=== PATIENT | male | born 1965 | race Caucasian/White ===

== ENCOUNTER 2022-09-16 12:32 | Inpatient (IN) | payer MEDICARE, MEDICAID, SELFPAY ==
[2022-09-16] VITALS (8 sets, daily range): BP systolic 123–165; BP diastolic 74–90; PULSE 71–80; RESP 16–26; TEMP 36.6–36.9; O2SAT 85–93; BMI 41.0
--- NOTE | 2022-09-16 13:33 | EDS_ITS ---
HPI History of Present Illness Chief Complaint: Shortness of Breath Detail of Chief Complaint: Shortness of breath Informant: patient Narrative Narrative: Patient presents to the emergency department with complaint of shortness of breath. He was seen at his primary care physician's office today to get put back on oxygen and was referred to the ER. Patient used to be on oxygen but somehow he got taken off by Medicare and its unclear if they stopped paying for it. Patient states he was taken off accidentally because he just needed certain times. Patient also states that a year ago he had his BiPAP machine recalled and is on a wait list to get a new one. In the office today his O2 sat was 85% on room air and with ambulation it dropped down to 75%. Patient had an EKG in the office that showed abnormal T wave changes and was referred to the emergency department. Patient denies any chest pain. He denies fever or cough. He denies recent travel or surgery. Patient does have history of COPD as well as CHF and history of bipolar disorder. [facility] Medical History (Updated 09/16/22 @ 15:[address] Eugenie Rodrigues, ) Bipolar disorder Congestive heart failure (CHF) COPD (chronic obstructive pulmonary disease) Home Medications albuterol sulfate 90 mcg/actuation aerosol inhaler (Ventolin HFA) 2 puff inhalation Q6H PRN sob 09/16/22 [History Last Taken Unknown] aripiprazole 2 mg tablet (Abilify) 2 mg PO DAILY 09/16/22 [History Last Taken Unknown] atorvastatin 40 mg tablet 40 mg PO DAILY 09/16/22 [History Last Taken Unknown] buspirone 7.5 mg tablet 3.75 mg PO TID 09/16/22 [History Last Taken Unknown] empagliflozin 25 mg tablet (Jardiance) 25 mg PO DAILY 09/16/22 [History Last Taken Unknown] fluoxetine 20 mg capsule (Prozac) 20 mg PO DAILY 09/16/22 [History Last Taken Unknown] fluticasone fur. 100 mcg-umeclid 62.5 mcg-vilant 25 mcg inhalat.powder (Trelegy Ellipta) 1 inh inhalation DAILY 09/16/22 [History Last Taken Unknown] furosemide 40 mg tablet (Lasix) 40 mg PO DAILY 09/16/22 [History Last Taken Unknown] lithium carbonate 300 mg tablet 300 mg PO TID 09/16/22 [History Last Taken Un known] metformin 1,000 mg tablet 1,000 mg PO BID 09/16/22 [History Last Taken Unknown] omeprazole 40 mg capsule,delayed release 40 mg PO DAILY 09/16/22 [History Last Taken Unknown] Allergy/AdvReac Type Severity Reaction Status Date / Time amoxicillin [From Augmentin] Allergy PT UNSURE Verified 09/16/22 12:36 OF REACTION clavulanic acid Allergy PT UNSURE Verified 09/16/22 12:36 [From Augmentin] OF REACTION Social History Smoking Status: Former smoker ROS ROS ED Review of Systems ROS Unobtainable: other Constitutional Constitutional ED: Reports lethargy; Denies chills, fever(s), sweats or weight loss Eyes Eyes: Denies blurry vision, change in vision or diplopia ENT ENT ED: Denies rhinorrhea or sore throat Cardiovascular Cardiovascular: Denies chest pain, orthopnea or racing heartbeat Respiratory/Chest Respiratory/Chest: Reports dyspnea and dyspnea on exertion; Denies cough, orthopnea or sputum Gastrointestinal Gastrointestinal: Denies abdominal pain, diarrhea, nausea or vomiting Genitourinary Genitourinary ED: Denies dysuria, hematuria or urinary frequency Musculoskeletal Musculoskeletal: Denies arthralgias, back pain, myalgias or neck pain Integumentary Denies abscess, Abrasions or rash Neurologic Neurologic: Denies headache(s) or weakness Psychiatric Psychiatric: Denies anxiety, depression or suicidal thoughts Endocrine Endocrinology: Denies polydipsia, polyphagia or polyuria Hematologic/Lymphatic Hematologic/Lymphatic: Denies easy bleeding, easy bruising or lymphadenopathy Allergic/Immunologic Allergic/Immunologic ED: Denies mouth swelling, tongue swelling or urticaria EXAM Physical Exam Narrative Exam Narrative: Morbidly obese Const Vital Signs: 09/16/22 12:34 09/16/22 12:52 09/16/22 13:07 Temperature 98.1 F Temperature Source Temporal Pulse Rate 78 Respiratory Rate 18 Respiratory Effort Normal Non-Labored Respiratory Depth Normal Respiratory Pattern Normal Blood Pressure 165/81 H Blood Pressure Mean 109 Pulse Ox 91 93 Oxygen Delivery Method Room Air Room Air Nasal Cannula Oxygen Flow Rate (L/min) 4 Positive well nourished and well developed General Appearance ED: well developed and NAD HEENT Reports TM's clear and moist mucous membranes normocephalic and atraumatic; Negative for trauma or tenderness Tympanic Membrane ED: Yes TM's clear Eyes PERRL and EOMs intact bilaterally General Eye ED: Negative for pale conjunctiva or scleral icterus Neck no lymphadenopathy, supple and no JVD General: Negative for tenderness Chest Wall inspection of chest normal and palpation of chest normal Chest: Negative for tenderness Resp normal respiratory effort and clear to auscultation bilaterally Effort and Inspection: Negative for respiratory distress or pain with movement Auscultation: Negative for rhonchi, wheezes or diminished lung sounds Cardio regular rate, regular rhythm, S1 normal heart sound, S2 normal heart sound and no murmurs Peripheral Pulses: pulses 2+ throughout GI normal to inspection, nondistended, normoactive bowel sounds, soft to palpation, non-tender, non-distended and no masses Back/Spine no CVA tenderness and no thoracic nor lumbar tenderness Extremity normal to inspection Extremity Narrative: +1 edema both lower extremities General Extremety ED: Negative for edema General Extremity: Negative for edema Neuro oriented x3, CN's II-XII intact bilaterally, no sensory deficits noted and gait normal Sensorium / Orientation: awake, alert, oriented to person, oriented to place and oriented to time Motor Exam: strength 5/5 throughout and strength abnormal Psych mental status grossly normal Skin no rashes or lesions noted and no wounds MDM MDM MDM Narrative Medical decision making narrative: Patient presents from primary care physician's office with hypoxemia. In the differential would be CHF versus pneumothorax versus infectious process. Patient also with abnormal EKG which could represent acute coronary syndrome with CHF. IV line established on arrival. Patient placed on a night monitor. EKG obtained showed a sinus rhythm with rate [address] changes anteriorly when compared with prior EKG appear more pronounced than on prior EKG. Chest x-ray I felt was unremarkable however radiology felt there might be evidence of pulmonary congestion/edema or early developing pneumonia. Clinically I do not think patient has pneumonia. BMP is currently pending. Troponin was normal. White blood cell count was normal at 7.4 and hemoglobin was 15. D-dimer was less than 0.27. On 4 L nasal cannula O2 patient still saturating around 90%. Case will be discussed with hospitalist to evaluate patient for admission. Lab Data Labs: Laboratory Results - last 24 hr 09/16/22 09/16/22 09/16/22 14:12 14:12 14:12 WBC 7.4 RBC 5.65 Hgb 15.0 Hct 50.7 MCV 89.7 MCH 26.5 L MCHC 29.6 L RDW Std Deviation 47.6 H RDW Coeff of Fany 14.6 Plt Count 204 MPV 10.7 Immature Gran % (Auto) 0.300 Neut % (Auto) 74.3 H Lymph % (Auto) 12.0 L [place] % (Auto) 11.8 H Eos % (Auto) 1.2 Baso % (Auto) 0.4 Absolute Neuts (auto) 5.5 Absolute Lymphs (auto) 0.89 Nucleated RBC % 0 D-Dimer Quant (PE/DVT) < 0.27 L Sodium 141 Potassium 4.3 Chloride 104 Carbon Dioxide 33.0 H Anion Gap 4 L BUN 17 Creatinine 0.89 Estim Creat Clear Calc 102.24 Est GFR (MDRD) Af Amer 112 Est GFR (MDRD) Non-Af 93 BUN/Creatinine Ratio 19.0 Glucose 112 H Calcium 9.0 Troponin I High Sens 28 B-Natriuretic Peptide 09/16/22 14:12 WBC RBC Hgb Hct MCV MCH MCHC RDW Std Deviation RDW Coeff of Fany Plt Count MPV Immature Gran % (Auto) Neut % (Auto) Lymph % (Auto) [place] % (Auto) Eos % (Auto) Baso % (Auto) Absolute Neuts (auto) Absolute Lymphs (auto) Nucleated RBC % D-Dimer Quant (PE/DVT) Sodium Potassium Chloride Carbon Dioxide Anion Gap BUN Creatinine Estim Creat Clear Calc Est GFR (MDRD) Af Amer Est GFR (MDRD) Non-Af BUN/Creatinine Ratio Glucose Calcium Troponin I High Sens B-Natriuretic Peptide 20.2 Radiography Chest X-Ray - ED: 1 View Diagnostic Testing: Clinical Impression(s) from Imaging Studies Chest X-Ray 09/16/22 14:00 IMPRESSION: Findings compatible with interstitial edema or early/developing pneumonia. Follow-up chest imaging to resolution recommended. Electronically Signed: Tushar Andres, at 14:15 EDT , 1 view chest x-ray obtained interpreted by myself as no evidence of infiltrate or pneumothorax or acute disease process. Radiology felt there might be finding s compatible with interstitial edema or early developing pneumonia. EKG Initial EKG: Attestation: I personally reviewed and interpreted this EKG as follows: Comments: Sinus rhythm with nonspecific ST changes anteriorly Prior EKG tracings: available for review Prior: Changed Discharge Plan Triage Chief Complaint: Shortness of Breath ED Provider: Eugenie Rodrigues Dx/Rx/DC Orders Clinical Impression: Acute dyspnea, Hypoxemia, Abnormal ECG Prescriptions: No Action furosemide [Lasix] 40 mg Tablet 40 mg PO DAILY atorvastatin 40 mg Tablet 40 mg PO DAILY omeprazole [Prilosec] 40 mg Capsule,Delayed Release(Dr/Ec) 40 mg PO DAILY metformin 1,000 mg Tablet 1,000 mg PO BID buspirone 7.5 mg Tablet 3.75 mg PO TID albuterol sulfate [Ventolin HFA] 90 mcg/actuation Hfa Aerosol Inhaler 2 puff INHALATION Q6H PRN (Reason: sob) lithium carbonate 300 mg Tablet 300 mg PO TID fluoxetine [Prozac] 20 mg Capsule 20 mg PO DAILY aripiprazole [Abilify] 2 mg Tablet 2 mg PO DAILY Jardiance 25 mg Tablet 25 mg PO DAILY Trelegy Ellipta 100-62.5-25 mcg Blister With Device 1 inh INHALATION DAILY Primary Care Provider: Tio Landry Referrals: Tio Landry DO [Primary Care Provider] - Disposition Disposition: Acute Care Hospital [facility]
--- NOTE | 2022-09-16 14:00 | RAD_ITS ---
STUDY: X-RAY CHEST REASON FOR EXAM: Male, 57 years old. Dyspnea. TECHNIQUE: Single frontal view of the chest. COMPARISON: None. FINDINGS: Cardiomegaly with aortic tortuosity. Low volume inspiration with patchy opacities in both lower lobes, right slightly greater than left. Findings most compatible with interstitial edema/congestive failure or early/developing pneumonia. Follow-up chest imaging to resolution recommended.. RAD/Chest 1 View (Portable) IMPRESSION: Findings compatible with interstitial edema or early/developing pneumonia. Follow-up chest imaging to resolution recommended. Electronically Signed: Tushar Andres, at 14:15 EDT ,
[2022-09-16 14:28] LABS: Absolute Lymphocyte Count 0.89 X10^3/uL (0.83-4.51); Absolute Neutrophil Count 5.5 X10^3/uL (2.0-7.7); Basophil# 0.03 X10^3/uL; Basophil% 0.4 % (0-1); Eosinophil# 0.09 X10^3/uL; Eosinophils% 1.2 % (0-5); Hematocrit 50.7 % (40-54); Lymphocyte # 0.89 X10^3/ul (0.83-4.51); Mean Corp Hgb Conc 29.6 g/dL (32-36); Mean Corpuscular Hgb 26.5 pg (27.0-32.0); Mean Corpuscular Volume 89.7 fL (80-94); Mean Platelet Vol. 10.7 fl (6.2-12.0); Monocyte# 0.88 X10^3/uL; Monocyte% 11.8 % (0-10); NRBC Flagged by Analyzer 0 % (0-5); Neutrophil # 5.53 X10^3/uL (2.7-7.7); Neutrophil % 74.3 % (47-70); Platelet Count 204 K/mm3 (150-450); RBC Distribution Width CV 14.6 % (11.6-14.6); RBC Distribution Width SD 47.6 fl (35.1-43.9); Red Blood Count 5.65 M/mm3 (4.6-6.2); White Blood Count 7.4 K/mm3 (4.4-11.0)
[2022-09-16 14:39] LABS: D-Dimer Quantitative (DVT/PE) < 0.27 FEU/ug/m (0.27-0.49)
[2022-09-16 14:50] LABS: Anion Gap 4 (5-15); BUN 17 mg/dL (7-18); Chloride 104 mmol/L (98-107); Creatinine, Serum 0.89 mg/dL (0.70-1.30); EST Glomerular Filtration Rate 93 mL/min (>60); Est Glom Filt Rate - Afr Amer 112 mL/min (>60); Estimated Creatinine Clearance 102.24 ml/min; Glucose 112 mg/dL (74-106); Potassium 4.3 mmol/L (3.5-5.1); Sodium Level 141 mmol/L (136-145); Troponin-I HS 28 pg/mL (3.0-78.0)
[2022-09-16 15:09] LABS: BNP,B-Type NATRIURETIC PEPTIDE 20.2 pg/mL (0-100)
--- NOTE | 2022-09-16 15:34 | HP.PCM_ITS ---
HPI - General General Date of Admission: 09/16/22 Date of Service: 09/16/22 Chief Complaint: Dyspnea, Hypoxia, EKG changes. HPI Narrative The patient is a 57 y/o M w/ PMHx: Morbid obesity, COPD, Chronic CHF, Bipolar disorder/Anxiety and Depression, GERD, Diabetes mellitus type II who presents to the [facility] ED on 09/16/22 with history of worsening dyspnea, worse with any exertion previously on chronic supplemental oxygen (4L [place]); however, he was taken off by Medicare for unclear reasons and has been off for nearly 1 year with no reported hypoxia per him at his follow-up PCP visits and also reportedly had a BiPAP machine in the past for sleep apnea however this has been recalled and he is awaiting for new 1 with PCP evaluation on day of presentation with oxygenation noted in the office 85% on room air and with ambulation decreased to 75% as well as an EKG in the office demonstrating T wave abnormalities different from his prior prompting referral to the ED for evaluation. He denies any recent fever, chills, cough or URI type symptoms. He reports chronic orthopnea unchanged but does believe he is probably gained weight although unclear timeline and states that the edema to his legs is chronic and unchanged. Work-up in the ED included T98.1, heart rate 78, BP 165/81, respiratory rate 18, initially 91% on room air however desaturated now 93% on 4 L nasal cannula, CBC with WC 7.4, hemoglobin 15, platelet 204 without marked shift, D-dimer less than 0.27, BMP with complex at 33, glucose 112 otherwise not marked appearing, troponin 28, BNP 20.2, chest x-ray with findings compatible with interstitial edema and/or early possibly developing pneumonia with patchy opacities in both lower lobes, right slightly greater than left, EKG with sinus rhythm with nonspecific ST-T wave changes with no acute evidence of ischemia. [facility] Medical History (Updated 09/16/22 @ 20:[address] Emma Roth MD) Anxiety and depression Bipolar disorder Chronic respiratory failure with hypoxia Congestive heart failure (CHF) COPD (chronic obstructive pulmonary disease) HLD (hyperlipidemia) HTN (hypertension) Morbid obesity BALA treated with BiPAP Home Medications albuterol sulfate 90 mcg/actuation aerosol inhaler (Ventolin HFA) 2 puff inhalation Q6H PRN sob 09/16/22 [History Last Taken 2 Days Ago ~09/14/22] aripiprazole 5 mg tablet 5 mg PO DAILY . 09/16/22 [History Last Taken 09/16/22] atorvastatin 40 mg tablet 40 mg PO DAILY 09/16/22 [History Last Taken 09/15/22] buspirone 7.5 mg tablet 3.75 mg PO TID 09/16/22 [History Last Taken 09/16/22] empagliflozin 25 mg tablet (Jardiance) 25 mg PO DAILY 09/16/22 [History Last Taken 09/16/22] fluoxetine 20 mg capsule (Prozac) 20 mg PO DAILY 09/16/22 [History Last Taken 09/16/22] fluticasone fur. 100 mcg-umeclid 62.5 mcg-vilant 25 mcg inhalat.powder (Trelegy Ellipta) 1 inh inhalation DAILY 09/16/22 [History Last Taken 09/16/22] furosemide 40 mg tablet (Lasix) 40 mg PO DAILY 09/16/22 [History Last Taken 09/15/22] lithium carbonate 300 mg tablet 300 mg PO TID 09/16/22 [History Last Taken 09/16/22] metformin 1,000 mg tablet 1,000 mg PO BID 09/16/22 [History Last Taken 09/16/22] omeprazole 40 mg capsule,delayed release 40 mg PO DAILY 09/16/22 [History Last Taken 09/16/22] Allergy/AdvReac Type Severity Reaction Status Date / Time amoxicillin [From Augmentin] Allergy PT UNSURE Verified 09/16/22 12:36 OF REACTION clavulanic acid Allergy PT UNSURE Verified 09/16/22 12:36 [From Augmentin] OF REACTION Family History (Updated 09/16/22 @ 20:[address] Emma Roth MD) Mother Hypertension Father Hypertension Heart disease Prostate cancer Surgical History (Updated 09/16/22 @ 20:[address] Emma Roth MD) History of tonsillectomy and adenoidectomy Social History (Updated 09/16/22 @ 20:[address] Emma Roth MD) household members: none Smoking Status: Former smoker how long ago did patient quit smoking: Quit 2016, smoked 1.5 ppd since teen until quit. alcohol intake: never substance use type: does not use ROS ROS Narrative Admission Review of Systems: CONSTITUTIONAL: No weight loss, fever, chills, + weakness or fatigue. HEENT: Eyes: No visual loss, blurred vision, double vision or yellow sclerae. Ears, Nose, Throat: No hearing loss, sneezing, congestion, runny nose or sore throat. SKIN: No rash or itching, lesions, wounds. CARDIOVASCULAR: No chest pain, chest pressure or chest discomfort, palpitations, edema, orthopnea, syncopal events. RESPIRATORY: + shortness of breath worse with exertion, occasional wheezing. No marked cough or sputum, hemoptysis. GASTROINTESTINAL: No anorexia, nausea, vomiting or diarrhea, abdominal pain, melena, BRBPR. GENITOURINARY: No dysuria, frequency, urgency or retention. NEUROLOGICAL: No headache, dizziness, syncope, paralysis, ataxia, numbness or tingling in the extremities, focal weakness, change in bowel or bladder control, seizure. MUSCULOSKELETAL: + muscle, back pain, joint pain or stiffness. HEMATOLOGIC: No anemia, bleeding or bruising. LYMPHATICS: No enlarged nodes. No history of splenectomy. PSYCHIATRIC: + history of depression or anxiety. ENDOCRINOLOGIC: No reports of sweating, cold or heat intolerance. No polyuria or polydipsia. ALLERGIES: No history of asthma, hives, eczema or rhinitis. Vital Signs Vital Signs Vital Signs: 09/16/22 12:34 09/16/22 12:52 09/16/22 13:07 Temperature 98.1 F Temperature Source Temporal Pulse Rate 78 Respiratory Rate 18 Respiratory Effort Normal Non-Labored Respiratory Depth Normal Respiratory Pattern Normal Blood Pressure 165/81 H Blood Pressure Mean 109 Pulse Ox 91 93 Oxygen Delivery Method Room Air Room Air Nasal Cannula Oxygen Flow Rate (L/min) 4 Weight Weight: 311 lb 1.156 oz Body Mass Index (BMI) 41.0 Physical Exam Narrative Physical Examination: General: Awake, alert, oriented x 3 and cooperative, seated upright in the ED bed, fatigued otherwise no acute distress. Skin: Normal color, normal turgor, no icterus, no cyanosis except for venous stasis skin changes to bilateral lower extremity. HEENT: AT/NC, EOMI, PERRLA, MMM, no carotid bruits, thickened neck makes JVD evaluation difficult Lungs: Diminished, greater bases, occasional end expiratory wheeze, no respiratory distress, no rales or rhonchi. Heart: Currently regular rate and rhythm; no gallop, rub audible. Abdomen: Soft, morbidly obese, NTTP, difficult to assess distention and HSM given morbidly obese habitus, distant normal bowel sounds Extremities: No cyanosis, no clubbing, chronic bilateral lower extremity likely lymphedema with chronic venous stasis skin changes noted Neurological: Patient awake, alert, oriented as noted, cognitive function intact; pupils equally reactive to light and accommodation, cranial nerves II- XII grossly normal, moving all 4 extremities, no focal deficits, strength moderately to severely global decrease secondary to acute presentation with notable hypoxia Psychiatric: Affect appears fatigued, no acute evidence of depressive or anxiety feelings. Results Lab / Micro Data Result Diagrams: 09/16/22 14:12 09/16/22 14:12 Labs: Laboratory Results - last 24 hr 09/16/22 14:12: WBC 7.4, RBC 5.65, Hgb 15.0, Hct 50.7, MCV 89.7, MCH 26.5 L, MCHC 29.6 L, RDW Std Deviation 47.6 H, RDW Coeff of Fany 14.6, Plt Count 204, MPV 10.7, Immature Gran % (Auto) 0.300, Neut % (Auto) 74.3 H, Lymph % (Auto) 12.0 L, [place] % (Auto) 11.8 H, Eos % (Auto) 1.2, Baso % (Auto) 0.4, Absolute Neuts (auto) 5.5, Absolute Lymphs (auto) 0.89, Nucleated RBC % 0 09/16/22 14:12: D-Dimer Quant (PE/DVT) < 0.27 L 09/16/22 14:12: Sodium 141, Potassium 4.3, Chloride 104, Carbon Dioxide 33.0 H, Anion Gap 4 L, BUN 17, Creatinine 0.89, Estim Creat Clear Calc 102.24, Est GFR (MDRD) Af Amer 112, Est GFR (MDRD) Non-Af 93, BUN/Creatinine Ratio 19.0, Glucose 112 H, Calcium 9.0, Troponin I High Sens 28 09/16/22 14:12: B-Natriuretic Peptide 20.2 Radiology Impression Chest X-Ray 09/16/22 14:00 IMPRESSION: Findings compatible with interstitial edema or early/developing pneumonia. Follow-up chest imaging to resolution recommended. Electronically Signed: Tushar Andres, at 14:15 EDT , Assessment & Plan Assessment/Plan (1) Hypoxemia: PLAN: Plan The patient is a 57 y/o M w/ PMHx: Morbid obesity, COPD, Chronic CHF, Bipolar disorder/Anxiety and Depression, GERD, Diabetes mellitus type II who presents to the [facility] ED on 09/16/22 with history of worsening dyspnea, worse with any exertion previously on chronic supplemental oxygen however he was taken off by Medicare for unclear reasons and also reportedly had a BiPAP machine in the past for sleep apnea however this has been recalled and he is awaiting for new 1 with PCP evaluation on day of presentation with oxygenation noted in the office 85% on room air and with ambulation decreased to 75% as well as an EKG in the office demonstrating T wave abnormalities different from his prior prompting referral to the ED for evaluation. #1. Acute hypoxia suspected likely on chronic as previously had been on chronic supplemental oxygen (4L [place]) with Possible Acute on Chronic CHF, Unclear type (lower suspicion) versus Possible PNA (lower suspicion) with concurrently reported new EKG changes w/ flipped T waves anteriorly more pronounced than prior versus Unfortunately Untreated Chronic Hypoxic Respiratory Failure: Will admit to PCU given unclear etiology CXR findings and EKG changes, maintain on oxygen with wean as tolerated to home oxygen supplementation, will cycle cardiac enzymes, repeat EKGs, continue ATC duonebs, PRN albuterol, initiate IV lasix pulse dose until clear etiology given findings on CXR although BNP not marked, will initiate also Rocephin and Azithromycin to be cautious w/ de-escalation off if infectious work-up unremarkable, HOB, IS parameters w/ pending sputum cultures, full respiratory viral panel, COVID PCR and urine antigens, will also obtain ECHO, will plan repeat CXR in AM following pulse dose lasix administration to evaluate for infiltrates, procalcitonin requested also. CM consulted to assist with oxygen issues and BIPAP machine. Certainly pending work-up as noted could obtain CT chest. Will need outpatient Pulmonary assessment/PFTs, re-establishment with Cardiology if appropriate. #2. Diabetes mellitus type II: Hold oral home regimen, ADA diet, accu checks w/ ISS. #3. Hypertension: We will hold home oral Lasix and transition to IV Lasix pending further evaluation for possible CHF versus early pneumonia, not on any beta-kyle nor INDERJIT inhibitor/ARB if no, PRN hydralazine. #4. Hyperlipidemia: We will continue patient on statin therapy, FLP in a.m. #5. Anxiety depression/bipolar disorder: We will continue patient home aripiprazole, buspirone, Prozac, lithium with level check requested. #6. Morbid Obesity: Weight loss and lifestyle changes encouraged. #7. GERD: We will continue patient home PPI. #8. BALA: BIPAP q HS. #9. DVT Prophylaxis: Lovenox. #10. CODE status: Patient does not have HCPOA or living will in place but he notes if he was unable to make medical decisions he would like his Mother to make these decisions. Discussed CODE status at length including difference between FULL code, DNR-CCA and DNR-CC status. Following discussions about the differences in these status, requested DNR-CCA, no intubation status. Advanced Care Planning Face to Face Time: 16 minutes. Admission Evaluation Time spent evaluating chart, patient history, patient evaluation, care planning and discussion with specialists: 75 minutes. Charges/Coding Visit Charges Inpatient E&M: 61724 Init Hosp L3 Procedures Hospitalists Procedures: 51318 Advncd Care Plan 30 Min
--- NOTE | 2022-09-16 17:13 | ECHOD_ITS ---
Reason For Study: CHF Procedure This was a 2D Doppler, Color Flow transthoracic echocardiogram. Exam performed portable in patient room. Left Ventricle Normal LV size. Mild concentric left ventricular hypertrophy. The left ventricular ejection fraction is 65 %. Normal diastology for age. Right Ventricle Mildly dilated right ventricle. Mild global right ventricular systolic dysfunction. Atria The left atrium is severely enlarged. Normal right atrium. Mitral Valve Trivial mitral valve insufficiency. Tricuspid Valve Trivial tricuspid valve insufficiency. Normal pulmonary artery pressure. Aortic Valve Trisinus/trileaflet aortic valve. Trivial aortic valve insufficiency. Pulmonic Valve Mild (1+) pulmonic valve insufficiency. Great Vessels Normal sized aortic root. MMode/2D Measurements & Calculations LVIDd: 5.5 cm IVSd: 1.2 cm Ao root diam: 3.4 cm LVIDs: 3.1 cm LVPWd: 1.2 cm RVDd: 4.4 cm FS: 43.2 % LAV(MOD-bp): 63.3 ml LVAd ap4: 32.3 cm2 SV(MOD-sp4): 66.7 ml LAV(MOD-bp) Indexed: 24.4 ml/m2 LVLd ap4: 8.8 cm LAV(MOD-sp2): 58.6 ml EDV(MOD-sp4): 98.7 ml LAV(MOD-sp4): 50.2 ml EDV(sp4-el): 101.3 ml LVAs ap4: 15.7 cm2 LVLs ap4: 6.6 cm ESV(MOD-sp4): 32.0 ml ESV(sp4-el): 31.7 ml EF(MOD-sp4): 67.6 % EF(sp4-el): 68.8 % SV(sp4-el): 69.7 ml LA dimension(2D): 5.0 cm LA A4 area: 22.0 cm2 RA A4 area: 18.3 cm2 Time Measurements MV dec time: 0.21 sec Doppler Measurements & Calculations MV E max simno: 106.3 cm/sec Lat Peak E' Simon: 14.3 cm/sec Med Peak E' Simon: 6.4 cm/sec MV A max simon: 85.7 cm/sec E/E' lat: 7.4 E/E' med: 16.6 MV E/A: 1.2 Ao V2 max: 154.9 cm/sec LV V1 max: 130.7 cm/sec MV dec slope: 501.2 cm/sec2 Ao max P.6 mmHg LV V1 max P.8 mmHg Ao V2 mean: 110.1 cm/sec Ao mean P.4 mmHg Ao V2 VTI: 33.5 cm PA V2 max: 111.0 cm/sec TR max simon: 276.0 cm/sec TR max P.5 mmHg ECHO/Echo Complete Interpretation Summary Mild concentric left ventricular hypertrophy. The left ventricular ejection fraction is 65 %. Mildly dilated right ventricle. Mild global right ventricular systolic dysfunction. The left atrium is severely enlarged. Mild (1+) pulmonic valve insufficiency. Ordering Physician: Emma Roth Referring Physician: Tio Landry Performed By: Kiely Ang, MICHAEL, RVT
[2022-09-16 18:16] LABS: Magnesium 2.5 mg/dL (1.6-2.6); Troponin-I HS 22 pg/mL (3.0-78.0)
[2022-09-16] MEDS: Furosemide 40 MG/4 ML Vial IV (18:22)
[2022-09-16] MEDS: 0.9% Saline Lock 10 ML Syringe IV (18:22)
[2022-09-16] MEDS: Ceftriaxone 1 GM/50 ML BAG IV (18:22)
[2022-09-16 19:13] LABS: Procalcitonin < 0.01 ng/mL (0.00-0.09)
[2022-09-16] MEDS: Ipratropium/Albuterol Sulfate 3 ML AMPUL.NEB INHALATION (20:44)
[2022-09-16 21:31] LABS: Troponin-I HS 24 pg/mL (3.0-78.0)
[2022-09-16] MEDS: Atorvastatin Calcium 40 MG Tablet PO (21:44)
[2022-09-16] MEDS: Enoxaparin 40 MG/0.4 ML Syringe SC (21:44)
[2022-09-16] MEDS: Lithium Carbonate 300mg Capsule 300 MG PO (21:44)
[2022-09-16] MEDS: busPIRone 15 MG TABLET 3.75 MG PO (21:44)
--- NOTE | 2022-09-16 22:15 | NURSING ---
pt gradually put on 10L from 5L d/t desats in low 80s%,, respiratory made aware that pt has an order for Bipap.
[2022-09-17] VITALS (12 sets, daily range): BP systolic 128–148; BP diastolic 72–89; PULSE 74–83; RESP 12–22; TEMP 36.6–36.9; O2SAT 90–97; BMI 41.0
[2022-09-17 01:40] LABS: Bedside Glucose 114 mg/dL (74-106)
[2022-09-17] MEDS: busPIRone 15 MG TABLET 3.75 MG PO ×3 (05:34→23:10)
[2022-09-17] MEDS: Lithium Carbonate 300mg Capsule 300 MG PO ×3 (05:34→23:12)
--- NOTE | 2022-09-17 05:51 | RAD_ITS ---
INDICATION: Dyspnea, ? PNA/CHF EXAMINATION/TECHNIQUE: X-RAY - XR Chest 2 Views COMPARISON: None. FINDINGS: LINES/DEVICES: None. LUNGS: Linear stranding/atelectasis in the right lung base. Mild elevation of the right hemidiaphragm. No focal infiltrate is seen. MEDIASTINUM AND CARDIOVASCULAR STRUCTURES: Cardiac silhouette not enlarged. Central airways and mediastinal contour are unremarkable. BONES AND SOFT TISSUES: No demonstrated acute osseous changes. RAD/Chest PA and Lateral IMPRESSION: 1. New right basilar segmental atelectasis. 2. Otherwise no significant change. Electronically Signed: Ambrosio Dash MD at 15:23 EDT ,
[2022-09-17 07:00] LABS: Bedside Glucose 135 mg/dL (74-106)
[2022-09-17] MEDS: Ipratropium/Albuterol Sulfate 3 ML AMPUL.NEB INHALATION ×2 (07:13→19:26)
[2022-09-17 07:44] LABS: Absolute Lymphocyte Count 0.69 X10^3/uL (0.83-4.51); Absolute Neutrophil Count 7.4 X10^3/uL (2.0-7.7); Basophil# 0.04 X10^3/uL; Basophil% 0.4 % (0-1); Eosinophil# 0.05 X10^3/uL; Eosinophils% 0.6 % (0-5); Hemoglobin 15.9 g/dL (13.0-16.5); Lymphocyte # 0.69 X10^3/ul (0.83-4.51); Lymphocyte % 7.6 % (19-41); Mean Corp Hgb Conc 28.5 g/dL (32-36); Mean Corpuscular Hgb 26.3 pg (27.0-32.0); Mean Corpuscular Volume 92.2 fL (80-94); Mean Platelet Vol. 10.8 fl (6.2-12.0); Monocyte# 0.88 X10^3/uL; Monocyte% 9.7 % (0-10); NRBC Flagged by Analyzer 0 % (0-5); Neutrophil # 7.38 X10^3/uL (2.7-7.7); Neutrophil % 81.1 % (47-70); Platelet Count 202 K/mm3 (150-450); RBC Distribution Width CV 14.6 % (11.6-14.6); RBC Distribution Width SD 49.1 fl (35.1-43.9); Red Blood Count 6.04 M/mm3 (4.6-6.2); White Blood Count 9.1 K/mm3 (4.4-11.0)
[2022-09-17 07:52] LABS: Hematocrit 55.7 % (40-54)
[2022-09-17 08:23] LABS: ALB/GLOB Ratio 1.1 RATIO (0.9-2.4); AST(SGOT) 13 U/L (15-37); Alanine Aminotransfer ALT/SGPT 23 U/L (16-61); Albumin, Serum 3.8 g/dL (3.2-5.0); Alkaline Phosphatase 83 U/L (45-117); Anion Gap 5 (5-15); BUN 18 mg/dL (7-18); BUN/Creat Ratio 21.8 RATIO (10-20); Chloride 102 mmol/L (98-107); Cholesterol 121 mg/dL (200); Creatinine, Serum 0.83 mg/dL (0.70-1.30); EST Glomerular Filtration Rate 102 mL/min (>60); Est Glom Filt Rate - Afr Amer 123 mL/min (>60); Estimated Creatinine Clearance 193.61 ml/min; Globulin 3.6 g/dL (2.2-4.2); Glucose 122 mg/dL (74-106); High Density Lipoprotein 50 mg/dL; Potassium 4.2 mmol/L (3.5-5.1); Protein, Total 7.4 g/dL (6.4-8.2); Sodium Level 140 mmol/L (136-145); Thyroid Stim Hormone (TSH) 0.34 uIU/mL (0.358-3.74); Triglycerides 135 mg/dL; Very Low Density Lipoprotein 27 mg/dL (5-40)
--- NOTE | 2022-09-17 08:54 | PN.HOSP_ITS ---
Reason for Visit Reason for Visit: Diagnoses Hypoxemia (09/16/22) Follow-up for hypoxia, evolving pneumonia and possible CHF exacerbation Objective Data Objective Data Vital Signs: Vital Signs Temp Pulse Resp BP Pulse Ox O2 Del Method O2 Flow Rate 98.0 F 78 21 H 138/72 H 94 Nasal Cannula 10 09/17/22 04:00 09/17/22 07:35 09/17/22 07:35 09/17/22 04:00 09/17/22 08:47 09/17/22 08:47 09/17/22 08:47 FiO2 40 09/17/22 04:33 Oxygen Flow Rate (L/min) 10 Oxygen Delivery Method Nasal Cannula Weight: 311 lb 1.156 oz Body Mass Index (BMI) 0.4 Intake & Output: Intake and Output for Last 24 Hours 09/15/22 09/16/22 09/17/22 23:59 23:59 23:59 Intake Total 305 / 305 Balance 305 / 305 Lab / Micro Data Result Diagrams: 09/17/22 06:49 09/17/22 06:49 Labs: Laboratory Results - last 24 hr 09/16/22 14:12: WBC 7.4, RBC 5.65, Hgb 15.0, Hct 50.7, MCV 89.7, MCH 26.5 L, MCHC 29.6 L, RDW Std Deviation 47.6 H, RDW Coeff of Fany 14.6, Plt Count 204, MPV 10.7, Immature Gran % (Auto) 0.300, Neut % (Auto) 74.3 H, Lymph % (Auto) 12.0 L, [place] % (Auto) 11.8 H, Eos % (Auto) 1.2, Baso % (Auto) 0.4, Absolute Neuts (auto) 5.5, Absolute Lymphs (auto) 0.89, Nucleated RBC % 0 09/16/22 14:12: D-Dimer Quant (PE/DVT) < 0.27 L 09/16/22 14:12: Sodium 141, Potassium 4.3, Chloride 104, Carbon Dioxide 33.0 H, Anion Gap 4 L, BUN 17, Creatinine 0.89, Estim Creat Clear Calc 102.24, Est GFR (MDRD) Af Amer 112, Est GFR (MDRD) Non-Af 93, BUN/Creatinine Ratio 19.0, Glucose 112 H, Calcium 9.0, Troponin I High Sens 28 09/16/22 14:12: B-Natriuretic Peptide 20.2 09/16/22 17:39: Magnesium 2.5, Troponin I High Sens 22 09/16/22 17:39: [place] 0.40 L 09/16/22 17:39: Procalcitonin < 0.01 09/16/22 20:35: COVID-19 (PATRIC) Not Detected 09/16/22 20:40: Troponin I High Sens 24 09/16/22 21:59: POC Glucose 114 H 09/17/22 06:42: POC Glucose 135 H 09/17/22 06:49: WBC 9.1, RBC 6.04, Hgb 15.9, Hct 55.7 H, MCV 92.2, MCH 26.3 L, MCHC 28.5 L, RDW Std Deviation 49.1 H, RDW Coeff of Fany 14.6, Plt Count 202, MPV 10.8, Immature Gran % (Auto) 0.600, Neut % (Auto) 81.1 H, Lymph % (Auto) 7.6 L, [place] % (Auto) 9.7, Eos % (Auto) 0.6, Baso % (Auto) 0.4, Absolute Neuts (auto) 7.4, Absolute Lymphs (auto) 0.69 L, Nucleated RBC % 0 09/17/22 06:49: Sodium 140, Potassium 4.2, Chloride 102, Carbon Dioxide 33.0 H, Anion Gap 5, BUN 18, Creatinine 0.83, Estim Creat Clear Calc 193.61, Est GFR (MDRD) Af Amer 123, Est GFR (MDRD) Non-Af 102, BUN/Creatinine Ratio 21.8 H, Glucose 122 H, Calcium 9.0, Total Bilirubin 0.50, AST 13 L, ALT 23, Alkaline Phosphatase 83, Total Protein 7.4, Albumin 3.8, Globulin 3.6, Albumin/Globulin Ratio 1.1, Triglycerides 135, Cholesterol 121, LDL Cholesterol 44, VLDL Cholesterol 27, HDL Cholesterol 50, TSH 0.34 L Radiography Diagnostic Testing: Radiology Impression Chest X-Ray 09/16/22 14:00 IMPRESSION: Findings compatible with interstitial edema or early/developing pneumonia. Follow-up chest imaging to resolution recommended. Electronically Signed: Tushar Andres, at 14:15 EDT , Physical Exam Narrative Seen and examined. Patient has history of smoking quit several years ago. Was smoking 1 pack/day since teenage. States he has a diagnosis of COPD. Patient gets easily short of breath trying to sit up from supine position or turning around in the bed. Physical exam General: Alert, Oriented x3, Cooperative, morbid obesity, weight 141 kg HEENT: Atraumatic, PERRLA, EOMI, Normocephalic Oral: Oral mucosa moist. No Gingival or Mucosal Lesions/ Ulcerations Neck: Supple, No JVD, Negative Carotid Bruits Lungs: Air entry diminished in bilateral lung bases. Bilateral, right more than left coarse crepitations. Dyspnea on minimal exertion. Mild tachypnea. 40 % FiO2, on 10 L of oxygen. Cardiovascular: Regular rate, Regular Rhythm, Normal S1, Normal S2, No murmurs Abdomen: Bowel Sounds Present, Soft, Non Tender, Non-Distended : No renal angle tenderness. No suprapubic tenderness. Extremities: No edema, Capillary Refill Less than 3 Seconds Skin: No rashes, No breakdown Musculoskeletal: No Tenderness to Palpation of Joints or Extremities, muscle strength 4+/5 at major joints Neurological: Cranial nerves II-XII grossly intact, DTR 2+/4 and Symmetrical, Neuro grossly intact Psych/Mental Status: Flat affect. Assessment & Plan Assessment/Plan (1) Hypoxemia: PLAN: Plan The patient is a 57 y/o M was sent by PCP for shortness of breath and hypoxia, 85% on room air and dropped to 75% on ambulation. Patient used to be on 4 L oxygen but was taken off by Medicare, reason unclear. As per ED physician, patient also had abnormal T waves in PCP office. #1. Acute on chronic hypoxia most probably, multifactorial CHF exacerbation, COPD exacerbation from a developing pneumonia with possible obstructive sleep apnea/OSH: Patient usually requires 4 L before home oxygen was taken off by Medicare. Patient also had BiPAP at home. chest x-ray individually reviewed from yesterday, 09/16 and today. Twelve-lead EKG shows normal sinus rhythm, RAD, RVH T inversion V1 to V3. No previous EKG to compare before admission. Chest x-ray shows interstitial edema and bilateral lower lobe opacities with bibasilar atelectasis. Possible evolving pneumonia. Patient on IV ceftriaxone and azithromycin. COVID-19 PCR negative. Urinary antigens and sputum culture respiratory panel pending. Echo is ordered IV Solu- Medrol started. Patient does not have prior echo. Serial troponin enzymes are negative. Patient does not see biodiesel product development manager or gun repair clerk. Will need PFT and sleep study as outpatient. #2. Diabetes mellitus type II: Hold oral home regimen, ADA diet, accu checks w/ ISS. #3. Hypertension: IV Lasix 40 mg twice daily. #4. Hyperlipidemia: continue patient on statin therapy, FLP shows LDL 44 HDL 50. #5. Anxiety depression/bipolar disorder: We will continue patient home aripiprazole, buspirone, Prozac, lithium with level check requested. #6. Morbid Obesity: Weight loss and lifestyle changes encouraged. #7. GERD: We will continue patient home PPI. #8. BALA: BIPAP q HS. #9. DVT Prophylaxis: Lovenox. #10. CODE status: Patient does not have HCPOA or living will in place but he notes if he was unable to make medical decisions he would like his Mother to make these decisions. Discussed CODE status at length including difference between FULL code, DNR-CCA and DNR-CC status. Following discussions about the differences in these status, requested DNR-CCA, no intubation status. Charges/Coding Visit Charges Inpatient E&M: 13459 Subs Hosp L2
[2022-09-17] MEDS: Furosemide 40 MG/4 ML Vial IV ×2 (10:23→17:01)
[2022-09-17] MEDS: FLUoxetine 20 MG Capsule PO (10:23)
[2022-09-17] MEDS: Pantoprazole Sodium 40 MG Tablet PO (10:23)
[2022-09-17] MEDS: 0.9% Saline Lock 10 ML Syringe IV ×3 (10:23→17:01)
[2022-09-17] MEDS: Enoxaparin 40 MG/0.4 ML Syringe SC ×2 (10:23→23:13)
[2022-09-17] MEDS: ARIPiprazole 5 MG Tablet PO (10:23)
[2022-09-17] MEDS: Ceftriaxone 1 GM/50 ML BAG IV (10:31)
--- NOTE | 2022-09-17 11:59 | CASEMGMT ---
Addendum entered and electronically signed by Saima Givens RN 09/17/22 16:47: Palliative care order received from Dr. Kitchen, referral sent via secure email to [facility]. Jerry Givens RN CM Original Note: YISSEL AUGUSTE DC Planning: Face to Face with patient for initial transition planning/care coordination assessment.? YISSEL AUGUSTE introduced self and role at [facility], pt voices understanding.?Pt alert, oriented x4 and is agreeable to participating in assessment. Care providers, pharmacy,?and demographics verified. ? Admitting dx: Acute on chronic hypoxia PCP: Gris Specialists: none Preferred Pharmacy: [facility] Insurance: [facility] A/B, [facility] CP Prescription Benefit:?yes Living Will/HPOA: none LNOK: mother Tabitha. Pt states he does not have any children. Living Arrangements: Pt lives alone in a single story apartment without steps to enter. Pt states he is independent with self care but does have an aide to assist with household tasks. Pt denies receiving any home delivered meals. Transportation: Pt denies any concerns with transporation and states I can get there in regard to getting to appointments DME: cane, medical alert, pulse oximeter, grab bars. Pt states he does not have home O2 and his bipap has been recalled. He has not received a new one. SNF: Pt states he has been to [facility] previously HHC: pt denies any skilled HHC previously but states he currently receives a HH aide 3hrs/visit twice a week from [place]. Pt states he is active with waiver services but cannot recall the name of his caseworker. ? Plan: Pt plans to return home with the resumption of waiver services. Pt states he does well on his own and denies any concerns or dc needs at this time. Discussed palliative care services but pt is uncertain at this time if he would be interested. During assessment, pt requested to go to the bathroom stating it was urgent. This YISSEL AUGUSTE assisted pt to bathroom. Pt able to ambulate independently with assistance with court monitor, O2 tubing, and IV pole provided. Will continue to monitor and assist with home going needs as determined. Jerry Givens RN CM
[2022-09-17 12:00] LABS: Bedside Glucose 111 mg/dL (74-106)
[2022-09-17 17:41] LABS: Bedside Glucose 169 mg/dL (74-106)
[2022-09-17] MEDS: Atorvastatin Calcium 40 MG Tablet PO (23:12)
[2022-09-17] MEDS: Insulin Lispro 100 UNIT/ML INSULN.PEN SC (23:13)
[2022-09-17] MEDS: guaiFENesin/D-Methorphan TAB.SR.12H 2 TABLET PO (23:13)
[2022-09-18] VITALS (12 sets, daily range): BP systolic 106–122; BP diastolic 57–79; PULSE 66–84; RESP 12–21; TEMP 36.7–36.8; O2SAT 90–98; BMI 39.2
[2022-09-18 00:06] LABS: Bedside Glucose 166 mg/dL (74-106)
[2022-09-18] MEDS: Lithium Carbonate 300mg Capsule 300 MG PO ×3 (06:30→21:29)
[2022-09-18] MEDS: busPIRone 15 MG TABLET 3.75 MG PO ×3 (06:30→21:28)
[2022-09-18] MEDS: Ipratropium/Albuterol Sulfate 3 ML AMPUL.NEB INHALATION ×2 (06:59→19:28)
[2022-09-18 07:45] LABS: Bedside Glucose 135 mg/dL (74-106)
[2022-09-18] MEDS: FLUoxetine 20 MG Capsule PO (08:28)
[2022-09-18] MEDS: ARIPiprazole 5 MG Tablet PO (08:28)
[2022-09-18] MEDS: guaiFENesin/D-Methorphan TAB.SR.12H 2 TABLET PO ×2 (08:28→21:29)
[2022-09-18] MEDS: Pantoprazole Sodium 40 MG Tablet PO (08:28)
[2022-09-18] MEDS: Senna/Docusate Sodium 1 Tablet 2 TABLET PO (08:29)
--- NOTE | 2022-09-18 09:02 | PN.HOSP_ITS ---
Reason for Visit Reason for Visit: Diagnoses Hypoxemia (09/16/22) Follow-up for hypoxia, COPD exacerbation, possible pneumonia and CHF exacerbation Objective Data Objective Data Vital Signs: Vital Signs Temp Pulse Resp BP Pulse Ox O2 Del Method O2 Flow Rate 98.0 F 84 21 H 122/73 H 95 Nasal Cannula 4 09/18/22 06:26 09/18/22 07:23 09/18/22 07:23 09/18/22 06:26 09/18/22 08:36 09/18/22 08:36 09/18/22 08:36 FiO2 40 09/18/22 05:20 Oxygen Flow Rate (L/min) 4 Oxygen Delivery Method Nasal Cannula Weight: 297 lb 6.457 oz Body Mass Index (BMI) 39.2 Intake & Output: Intake and Output for Last 24 Hours 09/16/22 09/17/22 09/18/22 23:59 23:59 23:59 Intake Total 305 / 305 785 / 1745 1440 / 1440 Balance 305 / 305 785 / 1745 1440 / 1440 Lab / Micro Data Result Diagrams: 09/17/22 06:49 09/17/22 06:49 Labs: Laboratory Results - last 24 hr 09/17/22 11:24: POC Glucose 111 H 09/17/22 16:52: POC Glucose 169 H 09/17/22 22:55: POC Glucose 166 H 09/18/22 06:28: POC Glucose 135 H Micro: Microbiology 09/16/22 05:50 Urine, Clean Catch Legionella Antigen - Final 09/16/22 05:50 Urine, Clean Catch Streptococcus pneumoniae Antigen (M - Final Radiography Diagnostic Testing: Radiology Impression Echocardiogram 09/16/22 17:13 Interpretation Summary Mild concentric left ventricular hypertrophy. The left ventricular ejection fraction is 65 %. Mildly dilated right ventricle. Mild global right ventricular systolic dysfunction. The left atrium is severely enlarged. Mild (1+) pulmonic valve insufficiency. Ordering Physician: Emma Roth Referring Physician: Tio Landry Performed By: Kiley Ang, RDCS, RVT Chest X-Ray 09/17/22 05:51 IMPRESSION: 1. New right basilar segmental atelectasis. 2. Otherwise no significant change. Electronically Signed: Ambrosio Dash MD at 15:23 EDT , Physical Exam Narrative Seen and examined. Patient has history of smoking quit several years ago. Was smoking 1 pack/day since teenage. States he has a diagnosis of COPD. Shortness of breath leg swelling has improved. Patient walking within the room. Patient uses BiPAP at night. Physical exam General: Alert, Oriented x3, Cooperative, morbid obesity, weight 141 kg HEENT: Atraumatic, PERRLA, EOMI, Normocephalic Oral: Oral mucosa moist. No Gingival or Mucosal Lesions/ Ulcerations Neck: Supple, No JVD, Negative Carotid Bruits Lungs: Air entry diminished in bilateral lung bases. Lungs bibasilar mild rales. Hypoxia and tachypnea has improved. On 4 L of oxygen. Cardiovascular: Regular rate, Regular Rhythm, Normal S1, Normal S2, No murmurs Abdomen: Bowel Sounds Present, Soft, Non Tender, Non-Distended : No renal angle tenderness. No suprapubic tenderness. Extremities: No edema, Capillary Refill Less than 3 Seconds Skin: No rashes, No breakdown Musculoskeletal: No Tenderness to Palpation of Joints or Extremities, muscle strength 4+/5 at major joints Neurological: Cranial nerves II-XII grossly intact, DTR 2+/4 and Symmetrical, Neuro grossly intact Psych/Mental Status: Flat affect. Assessment & Plan Assessment/Plan (1) Hypoxemia: PLAN: Plan The patient is a 57 y/o M was sent by PCP for shortness of breath and hypoxia, 85% on room air and dropped to 75% on ambulation. Patient used to be on 4 L oxygen but was taken off by Medicare, reason unclear. As per ED physician, patient also had abnormal T waves in PCP office. #1. Acute on chronic hypoxia most probably, multifactorial CHF exacerbation, COPD exacerbation from a developing pneumonia with possible obstructive sleep apnea/OSH: Patient usually requires 4 L before home oxygen was taken off by Medicare. Patient also had BiPAP at home. chest x-ray individually reviewed from yesterday, 09/16 and today. Twelve-lead EKG shows normal sinus rhythm, RAD, RVH T inversion V1 to V3. No previous EKG to compare before admission. Chest x-ray shows interstitial edema and bilateral lower lobe opacities with bibasilar atelectasis. Possible evolving pneumonia. Patient on IV ceftriaxone and azithromycin. COVID-19 PCR negative. Urinary antigens and sputum culture respiratory panel pending. Echo is ordered IV Solu- Medrol started. Patient does not have prior echo. Serial troponin enzymes are negative. Patient does not see mri manager or claims adjuster. Will need PFT and sleep study as outpatient. 09/18: Echo shows EF 65% with mildly dilated RV, left atrium severely enlarged and mild MO. Overall suggestive of right ventricular failure and acute on chronic HFpEF. Continue diuretic. Chest x-ray ordered for tomorrow AM. Urinary antigens are negative. Respiratory panel pending. #2. Diabetes mellitus type II: Hold oral home regimen, ADA diet, accu checks w/ ISS. 09/18: Glucose is reasonably controlled although variable. #3. Hypertension: IV Lasix 40 mg twice daily. #4. Hyperlipidemia: continue patient on statin therapy, FLP shows LDL 44 HDL 50. #5. Anxiety depression/bipolar disorder: We will continue patient home a ripiprazole, buspirone, Prozac, [place] level 0.4. Low. Patient on lithium. #6. Morbid Obesity: Weight loss and lifestyle changes encouraged. #7. GERD: We will continue patient home PPI. #8. BALA: BIPAP q HS. #9. DVT Prophylaxis: Lovenox. #10. CODE status: Patient does not have HCPOA or living will in place but he notes if he was unable to make medical decisions he would like his Mother to make these decisions. Discussed CODE status at length including difference between FULL code, DNR-CCA and DNR-CC status. Following discussions about the differences in these status, requested DNR-CCA, no intubation status. Microbiology Past 72 Hours 09/16/22 05:50 Urine, Clean Catch Legionella Antigen - Final 09/16/22 05:50 Urine, Clean Catch Streptococcus pneumoniae Antigen (M - Final Laboratory Results 09/17/22 16:52: POC Glucose 169 H 09/17/22 22:55: POC Glucose 166 H 09/18/22 06:28: POC Glucose 135 H 09/18/22 10:47: POC Glucose 280 H Charges/Coding Visit Charges Inpatient E&M: 15119 Subs Hosp L2
[2022-09-18] MEDS: Furosemide 40 MG/4 ML Vial IV ×2 (09:39→18:01)
[2022-09-18] MEDS: 0.9% Saline Lock 10 ML Syringe IV ×4 (09:39→22:46)
[2022-09-18] MEDS: Enoxaparin 40 MG/0.4 ML Syringe SC ×2 (09:39→21:29)
[2022-09-18] MEDS: Insulin Lispro 100 UNIT/ML INSULN.PEN SC ×2 (10:48→21:28)
[2022-09-18] MEDS: Ceftriaxone 1 GM/50 ML BAG IV (10:49)
[2022-09-18 11:25] LABS: Bedside Glucose 280 mg/dL (74-106)
[2022-09-18 16:50] LABS: Bedside Glucose 151 mg/dL (74-106)
[2022-09-18] MEDS: Atorvastatin Calcium 40 MG Tablet PO (21:29)
[2022-09-18 23:00] LABS: Bedside Glucose 172 mg/dL (74-106)
[2022-09-19] VITALS (9 sets, daily range): BP systolic 125–134; BP diastolic 80–84; PULSE 63–74; RESP 12–20; TEMP 36.4–37.2; O2SAT 92–97; BMI 39.3
[2022-09-19] MEDS: busPIRone 15 MG TABLET 3.75 MG PO ×3 (05:54→21:41)
[2022-09-19] MEDS: Lithium Carbonate 300mg Capsule 300 MG PO ×3 (05:55→21:41)
[2022-09-19] MEDS: 0.9% Saline Lock 10 ML Syringe IV (05:55)
[2022-09-19] MEDS: Insulin Lispro 100 UNIT/ML INSULN.PEN SC ×4 (05:55→21:27)
[2022-09-19 06:23] LABS: Absolute Lymphocyte Count 0.59 X10^3/uL (0.83-4.51); Absolute Neutrophil Count 8.3 X10^3/uL (2.0-7.7); Basophil# 0.01 X10^3/uL; Basophil% 0.1 % (0-1); Hematocrit 50.6 % (40-54); Hemoglobin 14.8 g/dL (13.0-16.5); Lymphocyte # 0.59 X10^3/ul (0.83-4.51); Lymphocyte % 6.1 % (19-41); Mean Corp Hgb Conc 29.2 g/dL (32-36); Mean Corpuscular Hgb 26.4 pg (27.0-32.0); Mean Corpuscular Volume 90.4 fL (80-94); Monocyte# 0.65 X10^3/uL; Monocyte% 6.7 % (0-10); NRBC Flagged by Analyzer 0 % (0-5); Neutrophil # 8.33 X10^3/uL (2.7-7.7); Neutrophil % 86.4 % (47-70); POSITIVE DIFFERENTIAL YES; Platelet Count 236 K/mm3 (150-450); RBC Distribution Width CV 14.3 % (11.6-14.6); RBC Distribution Width SD 47.3 fl (35.1-43.9); White Blood Count 9.7 K/mm3 (4.4-11.0)
[2022-09-19 06:31] LABS: Bedside Glucose 152 mg/dL (74-106)
[2022-09-19 06:43] LABS: Anion Gap 6 (5-15); BUN 28 mg/dL (7-18); BUN/Creat Ratio 32.3 RATIO (10-20); Calcium,Total 9.3 mg/dL (8.5-10.1); Chloride 95 mmol/L (98-107); Creatinine, Serum 0.87 mg/dL (0.70-1.30); EST Glomerular Filtration Rate 96 mL/min (>60); Est Glom Filt Rate - Afr Amer 117 mL/min (>60); Estimated Creatinine Clearance 104.59 ml/min; Glucose 151 mg/dL (74-106); Sodium Level 137 mmol/L (136-145)
[2022-09-19 06:48] LABS: Differential Indicated SCAN CRITERIA MET
[2022-09-19] MEDS: Ipratropium/Albuterol Sulfate 3 ML AMPUL.NEB INHALATION ×2 (07:14→20:20)
--- NOTE | 2022-09-19 09:07 | PCM.PN.HOSP ---
Reason for Visit Reason for Visit: Diagnoses Hypoxemia (09/16/22) Follow-up for hypoxia, COPD exacerbation, possible pneumonia and CHF exacerbation Objective Data Objective Data Vital Signs: Vital Signs Temp Pulse Resp BP Pulse Ox O2 Del Method O2 Flow Rate 98.7 F 73 20 H 125/84 H 94 Nasal Cannula 2 09/19/22 05:15 09/19/22 07:14 09/19/22 07:14 09/19/22 05:15 09/19/22 07:14 09/19/22 07:14 09/19/22 07:14 FiO2 40 09/19/22 03:29 Oxygen Flow Rate (L/min) 2 Oxygen Delivery Method Nasal Cannula Weight: 298 lb 1.039 oz Body Mass Index (BMI) 39.3 Intake & Output: Intake and Output for Last 24 Hours 09/17/22 09/18/22 09/19/22 23:59 23:59 23:59 Intake Total 785 / 1745 2645 / 3145 1100 / 1100 Balance 785 / 1745 2645 / 3145 1100 / 1100 Lab / Micro Data Result Diagrams: 09/19/22 05:40 09/19/22 05:40 Labs: Laboratory Results - last 24 hr 09/18/22 10:47: POC Glucose 280 H 09/18/22 16:27: POC Glucose 151 H 09/18/22 21:27: POC Glucose 172 H 09/19/22 05:40: WBC 9.7, RBC 5.60, Hgb 14.8, Hct 50.6, MCV 90.4, MCH 26.4 L, MCHC 29.2 L, RDW Std Deviation 47.3 H, RDW Coeff of Fany 14.3, Plt Count 236, MPV 11.0, Immature Gran % (Auto) 0.700, Neut % (Auto) 86.4 H, Lymph % (Auto) 6.1 L, [place] % (Auto) 6.7, Eos % (Auto) 0.0, Baso % (Auto) 0.1, Absolute Neuts (auto) 8.3 H, Absolute Lymphs (auto) 0.59 L, Nucleated RBC % 0, Differential Comment COMMENT 09/19/22 05:40: Sodium 137, Potassium 4.0, Chloride 95 L, Carbon Dioxide 36.0 H, Anion Gap 6, BUN 28 H, Creatinine 0.87, Estim Creat Clear Calc 104.59, Est GFR (MDRD) Af Amer 117, Est GFR (MDRD) Non-Af 96, BUN/Creatinine Ratio 32.3 H, Glucose 151 H, Calcium 9.3 09/19/22 05:52: POC Glucose 152 H Micro: Microbiology 09/16/22 05:50 Urine, Clean Catch Legionella Antigen - Final 09/16/22 05:50 Urine, Clean Catch Streptococcus pneumoniae Antigen (M - Final Physical Exam Narrative Seen and examined. Shortness of breath is better. BiPAP at night. Dyspnea on exertion. Physical exam General: Alert, Oriented x3, Cooperative, morbid obesity, weight 141 kg HEENT: Atraumatic, PERRLA, EOMI, Normocephalic Oral: Oral mucosa moist. No Gingival or Mucosal Lesions/ Ulcerations Neck: Supple, No JVD, Negative Carotid Bruits Lungs: Air entry diminished in bilateral lung bases. Lungs bibasilar mild rales. Hypoxia and tachypnea has improved. On 2 L of oxygen. Cardiovascular: Regular rate, Regular Rhythm, Normal S1, Normal S2, No murmurs Abdomen: Bowel Sounds Present, Soft, Non Tender, Non-Distended : No renal angle tenderness. No suprapubic tenderness. Extremities: No edema, Capillary Refill Less than 3 Seconds Skin: No rashes, No breakdown Musculoskeletal: No Tenderness to Palpation of Joints or Extremities, muscle strength 4+/5 at major joints Neurological: Cranial nerves II-XII grossly intact, DTR 2+/4 and Symmetrical, Neuro grossly intact Psych/Mental Status: Flat affect. Assessment & Plan Assessment/Plan (1) Hypoxemia: PLAN: Plan The patient is a 57 y/o M was sent by PCP for shortness of breath and hypoxia, 85% on room air and dropped to 75% on ambulation. Patient used to be on 4 L oxygen but was taken off by Medicare, reason unclear. As per ED physician, patient also had abnormal T waves in PCP office. #1. Acute on chronic hypoxia most probably, multifactorial CHF exacerbation, COPD exacerbation from a developing pneumonia with possible obstructive sleep apnea/OSH: Patient usually requires 4 L before home oxygen was taken off by Medicare. Patient also had BiPAP at home.Patient has history of smoking quit several years ago. Was smoking 1 pack/day since teenage. States he has a diagnosis of COPD. chest x-ray individually reviewed from yesterday, 09/16 and today. Twelve-lead EKG shows normal sinus rhythm, RAD, RVH T inversion V1 to V3. No previous EKG to compare before admission. Chest x-ray shows interstitial edema and bilateral lower lobe opacities with bibasilar atelectasis. Possible evolving pneumonia. Patient on IV ceftriaxone and azithromycin. COVID-19 PCR negative. Urinary antigens and sputum culture respiratory panel pending. Echo is ordered IV Solu-Medrol started. Patient does not have prior echo. Serial troponin enzymes are negative. Patient does not see shareholder or state superintendent of schools. Will need PFT and sleep study as outpatient. 09/18: Echo shows EF 65% with mildly dilated RV, left atrium severely enlarged and mild PA. Overall suggestive of right ventricular failure and acute on chronic HFpEF. Continue diuretic. Chest x-ray ordered for tomorrow AM. Urinary antigens are negative. Respiratory panel pending. 09/19: Continue diuretic. 40 mg IV chest to p.o. twice daily. Solu-Medrol changed to prednisone. Respiratory panel is pending. Discharge planning. PT and OT ordered. #2. Diabetes mellitus type II: Hold oral home regimen, ADA diet, accu checks w/ ISS. 09/19: Glucose is controlled. 09/18: Glucose is reasonably controlled although variable. #3. Hypertension: BP is controlled. #4. Hyperlipidemia: continue patient on statin therapy, FLP shows LDL 44 HDL 50. #5. Anxiety depression/bipolar disorder: We will continue patient home aripiprazole, buspirone, Prozac, [place] level 0.4. Low. Patient on lithium. #6. Morbid Obesity: Weight loss and lifestyle changes encouraged. #7. GERD: We will continue patient home PPI. #8. BALA: BIPAP q HS. #9. DVT Prophylaxis: Lovenox. #10. CODE status: Patient does not have HCPOA or living will in place but he notes if he was unable to make medical decisions he would like his Mother to make these decisions. Discussed CODE status at length including difference between FULL code, DNR-CCA and DNR-CC status. Following discussions about the differences in these status, requested DNR-CCA, no intubation status. Charges/Coding Visit Charges Inpatient E&M: 93282 Subs Hosp L2
--- NOTE | 2022-09-19 10:10 | RAD_ITS ---
STUDY: X-RAY CHEST REASON FOR EXAM: Male, 57 years old. Fever and cough TECHNIQUE: PA and lateral views of the chest. COMPARISON: None. FINDINGS: EKG leads overlie the chest Lungs are expanded with chronic interstitial changes, no superimposed acute pulmonary process, previously noted bibasilar atelectasis has cleared. Normal size heart. Normal mediastinum and jackelyn. Normal visualized pulmonary arteries. Normal visualized aortic arch and descending thoracic aorta. There are diffuse degenerative changes of the visualized thoracic spine. Normal visualized ribs, clavicles, and shoulders. There is no demonstrated abnormality of the visualized soft tissue structures of the upper abdomen. RAD/Chest PA and Lateral IMPRESSION: Chronic interstitial changes without a superimposed acute pulmonary process. Previously noted bibasilar atelectasis has cleared Electronically Signed: Josiah Hill MD at 10:30 EDT ,
[2022-09-19] MEDS: Ceftriaxone 1 GM/50 ML BAG IV (10:31)
[2022-09-19] MEDS: Enoxaparin 40 MG/0.4 ML Syringe SC ×2 (10:47→21:37)
[2022-09-19] MEDS: ARIPiprazole 5 MG Tablet PO (10:47)
[2022-09-19] MEDS: Furosemide 40 MG/4 ML Vial IV ×2 (10:47→17:15)
[2022-09-19] MEDS: FLUoxetine 20 MG Capsule PO (10:48)
[2022-09-19] MEDS: Pantoprazole Sodium 40 MG Tablet PO (10:48)
[2022-09-19] MEDS: Senna/Docusate Sodium 1 Tablet 2 TABLET PO ×2 (10:48→21:41)
[2022-09-19] MEDS: Azithromycin 250 MG Tablet 500 MG PO (10:49)
[2022-09-19 13:30] LABS: Bedside Glucose 222 mg/dL (74-106)
[2022-09-19] MEDS: guaiFENesin/D-Methorphan TAB.SR.12H 2 TABLET PO ×2 (13:46→21:41)
--- NOTE | 2022-09-19 14:11 | CASEMGMT ---
Social Work Isauro from [facility] to unit today to see patient. Per Isauro, patient signed with palliative services today and will see patient at home when ready for discharge. Palliative requests discharge summary and medication list be sent at time of discharge. Called [facility] at [phone] and spoke with Andres who was able to provide patient's waiver sample case porter through [facility] - Tatyana Munoz [phone]. Message left for Tatyana of patient's admission and request to call this headline writer back with confirmed list of services through Waiver program. Plan: Home with palliative care services. Patient has home waiver services through [facility] - home health aides. Will continue to follow. -DEONTE Alvares
[2022-09-19 18:10] LABS: Bedside Glucose 168 mg/dL (74-106)
[2022-09-19] MEDS: Atorvastatin Calcium 40 MG Tablet PO (21:41)
[2022-09-19 21:51] LABS: Bedside Glucose 167 mg/dL (74-106)
[2022-09-20] VITALS (7 sets, daily range): BP systolic 114–128; BP diastolic 73–83; PULSE 66–75; RESP 12–18; TEMP 36.1–36.9; O2SAT 86–96; BMI 39.2
[2022-09-20] MEDS: busPIRone 15 MG TABLET 3.75 MG PO (05:24)
[2022-09-20] MEDS: 0.9% Saline Lock 10 ML Syringe IV ×2 (05:24→11:31)
[2022-09-20] MEDS: Lithium Carbonate 300mg Capsule 300 MG PO (05:25)
[2022-09-20 06:34] LABS: Absolute Lymphocyte Count 1.25 X10^3/uL (0.83-4.51); Absolute Neutrophil Count 6.5 X10^3/uL (2.0-7.7); Basophil# 0.01 X10^3/uL; Basophil% 0.1 % (0-1); Eosinophil# 0.01 X10^3/uL; Eosinophils% 0.1 % (0-5); Hematocrit 51.9 % (40-54); Lymphocyte # 1.25 X10^3/ul (0.83-4.51); Lymphocyte % 14.1 % (19-41); Mean Corp Hgb Conc 28.9 g/dL (32-36); Mean Corpuscular Volume 89.8 fL (80-94); Monocyte# 1.06 X10^3/uL; Monocyte% 11.9 % (0-10); NRBC Flagged by Analyzer 0 % (0-5); Neutrophil # 6.54 X10^3/uL (2.7-7.7); Neutrophil % 73.6 % (47-70); Platelet Count 242 K/mm3 (150-450); RBC Distribution Width CV 14.5 % (11.6-14.6); RBC Distribution Width SD 47.4 fl (35.1-43.9); Red Blood Count 5.78 M/mm3 (4.6-6.2); White Blood Count 8.9 K/mm3 (4.4-11.0)
[2022-09-20 06:40] LABS: Bedside Glucose 130 mg/dL (74-106)
[2022-09-20 07:11] LABS: Anion Gap 3 (5-15); BUN 31 mg/dL (7-18); BUN/Creat Ratio 33.6 RATIO (10-20); Calcium,Total 8.9 mg/dL (8.5-10.1); Chloride 96 mmol/L (98-107); Creatinine, Serum 0.92 mg/dL (0.70-1.30); EST Glomerular Filtration Rate 89 mL/min (>60); Est Glom Filt Rate - Afr Amer 108 mL/min (>60); Estimated Creatinine Clearance 98.91 ml/min; Glucose 119 mg/dL (74-106); Potassium 3.5 mmol/L (3.5-5.1); Sodium Level 134 mmol/L (136-145)
[2022-09-20] MEDS: Ipratropium/Albuterol Sulfate 3 ML AMPUL.NEB INHALATION ×2 (07:29→13:30)
--- NOTE | 2022-09-20 08:14 | DCINST_ITS ---
Discharge Instructions Diet Discharge Diet: 8 Cup Fluid Restriction and 2000 mg Sodium Diet Activity Discharge Activity: Return to Normal Activity Weight Bearing Status: Weight bearing as tolerated Dressing / Incision Call your doctor if you observe: Fever of 101 or Higher, Coldness, Increased Pain, Numbness or Tingling, Change in Color, Inability to urinate, Inability to have a bowel movement, Shortness of breath, Dizziness, Fainting spells, Swelling in the ankles, Chest pain, Prolonged hiccupping, Increased palpitations (irregular heartbeat) and Calf discomfort Follow Up Care When: IN 2 WEEKS Test Results: Test results from this visit will be discussed in further detail at your follow- up appointment, if applicable. Discharge Plan Admission Admit Date/Time: 09/16/22 15:43 Primary Reason for Your Visit: COPD exa, HF exa Attending Provider: Shivam Kitchen Primary Care Provider: Tio Landry Consulting Providers: Emma Roth Discharge Orders/Prescriptions Prescriptions: New ipratropium-albuterol 0.5 mg-3 mg(2.5 mg base)/3 mL Solution For Nebulization 3 ml inhalation Q6HWA.RT PRN (Reason: SOB) Qty: 180 0RF prednisone 20 mg Tablet 40 mg PO BREAKFAST 5 Days Qty: 10 0RF Mucinex DM 30-600 mg Tablet Extended Release 12 Hr 2 tab PO BID 7 Days Qty: 28 0RF cefdinir 300 mg capsule 300 mg PO BID 4 Days Qty: 8 0RF Continued atorvastatin 40 mg Tablet 40 mg PO DAILY omeprazole 40 mg Capsule,Delayed Release(Dr/Ec) 40 mg PO DAILY metformin 1,000 mg Tablet 1,000 mg PO BID buspirone 7.5 mg Tablet 3.75 mg PO TID albuterol sulfate [Ventolin HFA] 90 mcg/actuation Hfa Aerosol Inhaler 2 puff INHALATION Q6H PRN (Reason: sob) lithium carbonate 300 mg Tablet 300 mg PO TID fluoxetine [Prozac] 20 mg Capsule 20 mg PO DAILY Jardiance 25 mg Tablet 25 mg PO DAILY Trelegy Ellipta 100-62.5-25 mcg Blister With Device 1 inh INHALATION DAILY aripiprazole 5 mg tablet 5 mg PO DAILY Label Comments: take 1 tablet by mouth once daily Changed furosemide [Lasix] 40 mg Tablet 40 mg PO BIDCM 30 Days Qty: 60 0RF Referrals / Follow Up: Rubén,Jonny, MD [Med Staff - Active Staff] - 10/06/22 9:00 am Tio Landry DO [Primary Care Provider] - Dayron Armendariz MD [Med Staff - Active Staff] - 09/22/22 1:40 pm Disposition Disposition (needs filled in before D/C Order can be placed): Home, Self Care
[2022-09-20] MEDS: predniSONE 20 MG Tablet 40 MG PO (09:03)
[2022-09-20] MEDS: Furosemide 40 MG Tablet PO (09:03)
[2022-09-20] MEDS: Pantoprazole Sodium 40 MG Tablet PO (10:22)
[2022-09-20] MEDS: Enoxaparin 40 MG/0.4 ML Syringe SC (10:22)
[2022-09-20] MEDS: ARIPiprazole 5 MG Tablet PO (10:22)
[2022-09-20] MEDS: Azithromycin 250 MG Tablet 500 MG PO (10:22)
[2022-09-20] MEDS: FLUoxetine 20 MG Capsule PO (10:22)
[2022-09-20] MEDS: guaiFENesin/D-Methorphan TAB.SR.12H 2 TABLET PO (10:23)
--- NOTE | 2022-09-20 10:58 | DS.PCM_ITS ---
Providers Date of Admission: 09/16/22 Primary Care Physician: Dr. Tio Landry, DO Reason For Visit: ACUTE ON CHRONIC HYPOXIA, ? CHF/PNA Diagnosis Discharge Diagnosis (1) Hypoxemia: Status: Acute Code(s): R09.02 - Hypoxemia Plan The patient is a 57 y/o M was sent by PCP for shortness of breath and hypoxia, 85% on room air and dropped to 75% on ambulation. Patient used to be on 4 L oxygen but was taken off by Medicare, reason unclear. As per ED physician, patient also had abnormal T waves in PCP office. #1. Acute on chronic hypoxia most probably, multifactorial CHF, acute on chronic HFpEF, COPD exacerbation from a developing pneumonia with possible obstructive sleep apnea/OSH: Patient usually requires 4 L before home oxygen was taken off by Medicare. Patient also had BiPAP at home.Patient has history of smoking quit several years ago. Was smoking 1 pack/day since teenage. States he has a diagnosis of COPD. chest x-ray individually reviewed from yesterday, 09/16 and today. Twelve-lead EKG shows normal sinus rhythm, RAD, RVH T inversion V1 to V3. No previous EKG to compare before admission. Chest x-ray shows interstitial edema and bilateral lower lobe opacities with bibasilar atelectasis. Possible evolving pneumonia. Patient on IV ceftriaxone and azithromycin. COVID-19 PCR negative. Urinary an tigens and sputum culture respiratory panel pending. Echo is ordered IV Solu- Medrol started. Patient does not have prior echo. Serial troponin enzymes are negative. Patient does not see char filter operator helper or v belt builder. Will need PFT and sleep study as outpatient. 09/18: Echo shows EF 65% with mildly dilated RV, left atrium severely enlarged and mild CO. Overall suggestive of right ventricular failure and acute on chronic HFpEF. Continue diuretic. Chest x-ray ordered for tomorrow AM. Urinary antigens are negative. Respiratory panel pending. 09/19: Continue diuretic. 40 mg IV chest to p.o. twice daily. Solu-Medrol changed to prednisone. Respiratory panel is pending. Discharge planning. PT and OT ordered. 09/20: Patient is discharged on furosemide 40 mg p.o. twice daily, DuoNeb nebul ization, prednisone burst therapy, Mucinex DM and antibiotic cefdinir to complete a total course of 8 days. Respiratory panel pending. Patient has appointment with Dr. Olson on 09/22/2022 and char filter operator helper Dr. Montana for heart failure. Patient is ambulatory in home and in the community and requires home oxygen with portability for COPD and heart failure. #2. Diabetes mellitus type II: Hold oral home regimen, ADA diet, accu checks w/ ISS. 09/19: Glucose is controlled. 09/20: Glucose is controlled 09/18: Glucose is reasonably controlled although variable. #3. Hypertension: BP is controlled. #4. Hyperlipidemia: continue patient on statin therapy, FLP shows LDL 44 HDL 50. #5. Anxiety depression/bipolar disorder: We will continue patient home aripiprazole, buspirone, Prozac, [place] level 0.4. Low. Patient on lithium. #6. Morbid Obesity: Weight loss and lifestyle changes encouraged. #7. GERD: We will continue patient home PPI. #8. BALA: BIPAP q HS. #9. DVT Prophylaxis: Lovenox. #10. CODE status: Patient does not have HCPOA or living will in place but he notes if he was unable to make medical decisions he would like his Mother to make these decisions. Discussed CODE status at length including difference between FULL code, DNR-CCA and DNR-CC status. Following discussions about the differences in these status, requested DNR-CCA, no intubation status. Discharge medication reconciliation done. Discharge follow-up instructions completed. Discharge process discussed with the patient and all questions were answered to patient's satisfaction. Patient is ambulatory in home and in the community and requires home oxygen with portability. Total time spent, exact 35 minutes on discharge meds reconciliation, examination, coordination of care with nurses and ancillary staff, review of imaging and blood test and discussion with the patient on follow-up instruct ions. Medications at Discharge Home Medications albuterol sulfate 90 mcg/actuation aerosol inhaler (Ventolin HFA) 2 puff inhalation Q6H PRN sob 09/16/22 aripiprazole 5 mg tablet 5 mg PO DAILY . 09/16/22 atorvastatin 40 mg tablet 40 mg PO DAILY 09/16/22 buspirone 7.5 mg tablet 3.75 mg PO TID 09/16/22 empagliflozin 25 mg tablet (Jardiance) 25 mg PO DAILY 09/16/22 fluoxetine 20 mg capsule (Prozac) 20 mg PO DAILY 09/16/22 fluticasone fur. 100 mcg-umeclid 62.5 mcg-vilant 25 mcg inhalat.powder (Trelegy Ellipta) 1 inh inhalation DAILY 09/16/22 lithium carbonate 300 mg tablet 300 mg PO TID 09/16/22 metformin 1,000 mg tablet 1,000 mg PO BID 09/16/22 omeprazole 40 mg capsule,delayed release 40 mg PO DAILY 09/16/22 cefdinir 300 mg capsule 300 mg PO BID 4 days #8 caps 09/20/22 dextromethorphan-guaifenesin 30 mg-600 mg tablet extended [id number] hr (Mucinex DM) 2 tab PO BID 7 days #28 tabs 09/20/22 furosemide 40 mg tablet (Lasix) 40 mg PO BIDCM 30 days #60 tabs 09/20/22 ipratropium 0.5 mg-albuterol 3 mg (2.5 mg base)/3 mL nebulization soln 3 ml inhalation Q6HWA.RT PRN SOB #180 mL 09/20/22 prednisone 20 mg tablet 40 mg PO BREAKFAST 5 days #10 tabs 09/20/22 Physical Exam Narrative Seen and examined. Shortness of breath is better. BiPAP at night. Dyspnea on exertion resolved. Physical exam General: Alert, Oriented x3, Cooperative, morbid obesity, weight 141 kg HEENT: Atraumatic, PERRLA, EOMI, Normocephalic Oral: Oral mucosa moist. No Gingival or Mucosal Lesions/ Ulcerations Neck: Supple, No JVD, Negative Carotid Bruits Lungs: Air entry diminished in bilateral lung bases. Lungs clear hypoxia and tachypnea has improved. On 2 L of oxygen. Cardiovascular: Regular rate, Regular Rhythm, Normal S1, Normal S2, No murmurs Abdomen: Bowel Sounds Present, Soft, Non Tender, Non-Distended : No renal angle tenderness. No suprapubic tenderness. Extremities: No edema, Capillary Refill Less than 3 Seconds Skin: No rashes, No breakdown Musculoskeletal: No Tenderness to Palpation of Joints or Extremities, muscle strength 4+/5 at major joints Neurological: Cranial nerves II-XII grossly intact, DTR 2+/4 and Symmetrical, Neuro grossly intact Psych/Mental Status: Flat affect. Weight / BMI Weight Weight: 297 lb 6.457 oz Body Mass Index (BMI) 39.2 ABG / Lab / Microbiology Data Result Diagrams: 09/20/22 05:39 09/20/22 05:39 Laboratory: Laboratory Results - last 24 hr 09/19/22 11:48: POC Glucose 222 H 09/19/22 17:11: POC Glucose 168 H 09/19/22 21:25: POC Glucose 167 H 09/20/22 05:39: WBC 8.9, RBC 5.78, Hgb 15.0, Hct 51.9, MCV 89.8, MCH 26.0 L, MCHC 28.9 L, RDW Std Deviation 47.4 H, RDW Coeff of Fany 14.5, Plt Count 242, MPV 11.0, Immature Gran % (Auto) 0.200, Neut % (Auto) 73.6 H, Lymph % (Auto) 14.1 L, [place] % (Auto) 11.9 H, Eos % (Auto) 0.1, Baso % (Auto) 0.1, Absolute Neuts (auto) 6.5, Absolute Lymphs (auto) 1.25, Nucleated RBC % 0 09/20/22 05:39: Sodium 134 L, Potassium 3.5, Chloride 96 L, Carbon Dioxide 35.0 H, Anion Gap 3 L, BUN 31 H, Creatinine 0.92, Estim Creat Clear Calc 98.91, Est GFR (MDRD) Af Amer 108, Est GFR (MDRD) Non-Af 89, BUN/Creatinine Ratio 33.6 H, Glucose 119 H, Calcium 8.9 09/20/22 06:21: POC Glucose 130 H Microbiology: Microbiology 09/16/22 05:50 Urine, Clean Catch Legionella Antigen - Final 09/16/22 05:50 Urine, Clean Catch Streptococcus pneumoniae Antigen (M - Final D/C Instructions Discharge Diet: 8 Cup Fluid Restriction and 2000 mg Sodium Diet Weight Bearing Status: Weight bearing as tolerated Call your doctor if you observe: Fever of 101 or Higher, Coldness, Increased Pain, Numbness or Tingling, Change in Color, Inability to urinate, Inability to have a bowel movement, Shortness of breath, Dizziness, Fainting spells, Swelling in the ankles, Chest pain, Prolonged hiccupping, Increased palpitations (irregular heartbeat) and Calf discomfort When: IN 2 WEEKS Meaningful Use Info Meaningful Use Diagnoses (Choose all that apply): None applicable Discharge Plan Admission Admit Date/Time: 09/16/22 15:43 Primary Reason for Your Visit: COPD exa, HF exa, valvular heart disease Attending Provider: Shivam Kitchen Primary Care Provider: Tio Landry Consulting Providers: Emma Roth Instructions Additional Instructions / Restrictions: Continue incentive spirometry and Pep for 1 more week. Discharge Orders/Prescriptions Prescriptions: New ipratropium-albuterol 0.5 mg-3 mg(2.5 mg base)/3 mL Solution For Nebulization 3 ml inhalation Q6HWA.RT PRN (Reason: SOB) Qty: 180 0RF prednisone 20 mg Tablet 40 mg PO BREAKFAST 5 Days Qty: 10 0RF Mucinex DM 30-600 mg Tablet Extended Release 12 Hr 2 tab PO BID 7 Days Qty: 28 0RF cefdinir 300 mg capsule 300 mg PO BID 4 Days Qty: 8 0RF Continued atorvastatin 40 mg Tablet 40 mg PO DAILY omeprazole 40 mg Capsule,Delayed Release(Dr/Ec) 40 mg PO DAILY metformin 1,000 mg Tablet 1,000 mg PO BID buspirone 7.5 mg Tablet 3.75 mg PO TID albuterol sulfate [Ventolin HFA] 90 mcg/actuation Hfa Aerosol Inhaler 2 puff INHALATION Q6H PRN (Reason: sob) lithium carbonate 300 mg Tablet 300 mg PO TID fluoxetine [Prozac] 20 mg Capsule 20 mg PO DAILY Jardiance 25 mg Tablet 25 mg PO DAILY Trelegy Ellipta 100-62.5-25 mcg Blister With Device 1 inh INHALATION DAILY aripiprazole 5 mg tablet 5 mg PO DAILY Label Comments: take 1 tablet by mouth once daily Changed furosemide [Lasix] 40 mg Tablet 40 mg PO BIDCM 30 Days Qty: 60 0RF Referrals / Follow Up: Jonny Montana MD [Med Staff - Active Staff] - 10/06/22 9:00 am Tio Landry DO [Primary Care Provider] - Dayron Armendariz MD [Med Staff - Active Staff] - 09/22/22 1:40 pm Disposition Disposition (needs filled in before D/C Order can be placed): Home, Self Care Charges/Coding Visit Charges Inpatient E&M: 91963 Disch Hosp >30min
[2022-09-20] MEDS: Ceftriaxone 1 GM/50 ML BAG IV (11:29)
[2022-09-20] MEDS: Insulin Lispro 100 UNIT/ML INSULN.PEN SC (11:45)
--- NOTE | 2022-09-20 12:04 | CASEMGMT ---
YISSEL AUGUSTE updated that patient will need home oxygen and nebulizer at discharge. Script received. YISSEL AUGUSTE in to review DME agencies with patient, patient would like [employer]. YISSEL AUGUSTE sent referral to [employer] via [employer] and arranged for delivery to patient's room. Patient denied additional needs at discharge. Patient had no further questions or concerns at this time.
[2022-09-20 12:05] LABS: Bedside Glucose 212 mg/dL (74-106)
--- NOTE | 2022-09-20 12:18 | CHAPLAIN ---
Type of Pastoral Visit _x__ Initial Visit ___ Follow-up Visit ___ On-call Visit ___ General Patient Visit ___ Spiritual Assessment ___ Family Conference ___ Bereavement ___ Rapid Response ___ Code Blue ___ Other (describe below) Pastoral Care Referral From _x__ Patient ___ Family ___ Nurse ___ Physician ___ Exhaust And Muffler Fitter ___ Tie Carrier ___ Other (describe below) Sacrament/Intervention _x__ Active listening ___ Anointing ___ Muslim ___ Bereavement ___ Communion _x__ Natasha exploration ___ ___ Life review _x__ Prayer ___ Reconciliation ___ Sacrament of Sick ___ Supportive presence ___ Wedding ___ Other (describe below) Pastoral Comments patient is welcoming and discussion about his health and how he monica begins; pt relates his natasha journey and that he is currently seeking to affiliate himself with a new temple; pt has family support per his report; pt engages in conversation easily; prayer is welcomed; no other needs noted
--- NOTE | 2022-09-20 15:04 | PHA.DC.MR ---
Pharmacy Service has performed discharge medication reconciliation for this patient. The patient's discharge medication list was reviewed for discrepancies and discrepancies were resolved. Medication educations papers prepared but patient was discharged before I was able to cruise counselor. Home Medications albuterol sulfate 90 mcg/actuation aerosol inhaler (Ventolin HFA) 2 puff inhalation Q6H PRN sob 09/16/22 aripiprazole 5 mg tablet 5 mg PO DAILY . 09/16/22 atorvastatin 40 mg tablet 40 mg PO DAILY 09/16/22 buspirone 7.5 mg tablet 3.75 mg PO TID 09/16/22 empagliflozin 25 mg tablet (Jardiance) 25 mg PO DAILY 09/16/22 fluoxetine 20 mg capsule (Prozac) 20 mg PO DAILY 09/16/22 fluticasone fur. 100 mcg-umeclid 62.5 mcg-vilant 25 mcg inhalat.powder (Trelegy Ellipta) 1 inh inhalation DAILY 09/16/22 lithium carbonate 300 mg tablet 300 mg PO TID 09/16/22 metformin 1,000 mg tablet 1,000 mg PO BID 09/16/22 omeprazole 40 mg capsule,delayed release 40 mg PO DAILY 09/16/22 cefdinir 300 mg capsule 300 mg PO BID 4 days #8 caps 09/20/22 dextromethorphan-guaifenesin 30 mg-600 mg tablet extended [id number] hr (Mucinex DM) 2 tab PO BID 7 days #28 tabs 09/20/22 furosemide 40 mg tablet (Lasix) 40 mg PO BIDCM 30 days #60 tabs 09/20/22 ipratropium 0.5 mg-albuterol 3 mg (2.5 mg base)/3 mL nebulization soln 3 ml inhalation Q6HWA.RT PRN SOB #180 mL 09/20/22 prednisone 20 mg tablet 40 mg PO BREAKFAST 5 days #10 tabs 09/20/22
== END 2022-09-20 14:34 | disposition home or self-care (01) | DRG 190 ==
LOC: ED 15:51 → PCU 16:20
PROVIDERS: Admitting Provider Family Medicine; Emergency Provider Emergency Medicine; PCP Family Medicine; Referring Provider Family Medicine; Visit Provider Internal Medicine
DX: J44.1 Chronic obstructive pulmonary disease with (acute) exacerbation (principal); I50.33 Acute on chronic diastolic (congestive) heart failure; J18.9 Pneumonia, unspecified organism; I11.0 Hypertensive heart disease with heart failure; J44.0 Chronic obstructive pulmonary disease with (acute) lower respiratory infection; F31.9 Bipolar disorder, unspecified; E11.9 Type 2 diabetes mellitus without complications; E66.01 Morbid (severe) obesity due to excess calories; G47.33 Obstructive sleep apnea (adult) (pediatric); K21.9 Gastro-esophageal reflux disease without esophagitis; E78.5 Hyperlipidemia, unspecified; R94.31 Abnormal electrocardiogram [ECG] [EKG]; Z79.51 Long term (current) use of inhaled steroids; Z87.891 Personal history of nicotine dependence; Z79.84 Long term (current) use of oral hypoglycemic drugs; Z68.39 Body mass index [BMI] 39.0-39.9, adult
CPT/HCPCS: 36415; 71045; 71046; 80048; 80053; 80061; 80178; 82962; 83735; 83880; 84145; 84443; 84484; 85025; 85379; 87449; 87633; 87635; 93005; 93306; 94002; 94003; 94640; 94668; 94762; 97802; 99252; 99284; 99406; J7040; Q9957; A4216; G0463; J1940; U0003; U0005

== ENCOUNTER → 2022-11-08 | Outpatient (CLI) | payer MEDICARE, MEDICAID, SELFPAY ==
--- NOTE | 2022-11-09 07:24 | PFT ---
INTRODUCTION: The patient is a 57-year-old male who presents for pulmonary function studies secondary to a diagnosis of COPD. Respiratory therapy reported good patient effort. Bronchodilators were used during testing. INTERPRETATION: Forced expiration spirometry demonstrates no evidence of a large airways obstructive ventilatory defect. There was no significant response to aerosolized bronchodilators. Spirograms are of good quality and plateau normally. Body plethysmography was performed and revealed a decreased TLC to 3.82 L, 52% of predicted, indicative of a severe restrictive ventilatory impairment. Diffusing capacity by single breath CO is within normal limits. IMPRESSION: Severe restrictive ventilatory impairment with preserved diffusing capacity.
== END | disposition home or self-care (01) ==
LOC: PSN 10:39
PROVIDERS: PCP Family Medicine; Referring Provider Internal Medicine; Visit Provider Internal Medicine
DX: J44.9 Chronic obstructive pulmonary disease, unspecified (principal); I27.81 Cor pulmonale (chronic)
CPT/HCPCS: 94060; 94726; 94729